=== PATIENT | female | born 1945 | race Caucasian/White ===

== ENCOUNTER 2016-07-31 13:14 | Emergency (ER) | payer OTHER ==
[~2016-07-31] VITALS: Ht 165.1 cm; Wt 47.0 kg
[2016-07-31] VITALS (8 sets, daily range): BP systolic 98–138; BP diastolic 55–72; PULSE 78–109; RESP 14–24; TEMP 97.9; O2SAT 68–88
[~2016-07-31 13:14] MED LIST: ARIC5TAB PO; CIPR500T4 PO; D-10TAB3 PO; DUONI NEB; LEVO.025 PO; LOPE2TAB3 PO; SYMB160A INH; TIOT18I INH
--- NOTE | 2016-07-31 14:34 | PD ---
HPI Chief Complaint: Psychiatric Symptoms Time Seen by Provider: 13:56 Travel History International Travel<30 days: No Contact w/Intl Traveler<30days: No Traveled to known affect area: No History of Present Illness HPI The patient was seen and examined in the presence of the nurse. This is a detention patient with a long history of severe dementia with agitation and behavioral disturbance. She's been here multiple times for that problem. According to detention documentation, this patient refused her medications and oxygen at the detention and wanted to smoke, so the psychiatrist wanted her sent here. Patient is very confused. This is her baseline. She doesn't have any specific medical complaint. She cannot provide any history or review of systems. PFSH Past Medical History Arthritis: Yes Asthma: Yes Blood Disorders: No Anxiety: Yes Depression: Yes Heart Rhythm Problems: No Cancer: Yes (hx lung cancer, according to ED record.) Cardiovascular Problems: Yes High Cholesterol: No Chemotherapy: No Chest Pain: No Congestive Heart Failure: Yes (PER PT) COPD: Yes Cerebrovascular Accident: No Diminished Hearing: No Endocrine: No Gastrointestinal Disorders: Yes GERD: Yes Glaucoma: No Genitourinary: No Headaches: No Hepatitis: No Hiatal Hernia: No Hypertension: No Immune Disorder: No Kidney Stones: No Musculoskeletal: Yes Neurologic: No Psychiatric: Yes Reproductive: No Respiratory: Yes (uses 6lpm nc) Migraines: No Myocardial Infarction: No Radiation Therapy: No Renal Failure: No Seizures: No Sleep Apnea: No Ulcer: Yes Menopausal: Yes Past Surgical History Abdominal Surgery: No AICD: No Appendectomy: No Arteriovenous Shunt: No Cardiac Surgery: No Section: Yes Cholecystectomy: No Ear Surgery: No Endocrine Surgery: No Eye Surgery: No Genitourinary Surgery: No Gynecologic Surgery: No Insulin Pump: No Joint Replacement: No Oral Surgery: No Pacemaker: No Thoracic Surgery: No Other Surgery: Yes Social History Alcohol Use: Yes (RARELY) Tobacco Use: Yes (1/2 PPD) Substance Use: Yes Allergies-Medications (Allergen,Severity, Reaction): Coded Allergies: Aspirin (Verified Allergy, Severe, GI UPSET, 07/31/16) Nonsteroidal Anti-Inflammatory Agts (Verified Allergy, Severe, GI UPSET, ) Penicillin (Verified Allergy, Severe, Anaphylaxis, 07/31/16) Reported Meds & Prescriptions Reported Meds & Active Scripts Active Reported Zofran (Ondansetron HCl) 4 Mg Tab 4 Mg PO Q6HR PRN [place] (Hydrocodone-Acetaminophen) 5-325 mg Tab 1 Tab PO Q4H PRN Duoneb (Ipratropium-Albuterol Neb) 0.5-2.5 Mg/3 Ml Neb 1 Vial NEB QID PRN Benadryl Allergy (Diphenhydramine HCl) 25 Mg Tab 25 Mg PO TID PRN Tylenol (Acetaminophen) 325 Mg Tab 650 Mg PO Q4H PRN [Abh Gel] [id number] 1 Ml TOPICAL Q6HR Seroquel (Quetiapine Fumarate) 25 Mg Tab 25 Mg PO TID Start date: 08/01/2016 @ 0900 Pantoprazole (Pantoprazole Sodium) 40 Mg Tab 40 Mg PO BID Metronidazole 500 Mg Tab 500 Mg PO Q12HR Until 08/02/2016 Advair Hfa 12 GM Inh (Fluticasone-Salmeterol 12 GM Inh) 230-21 Mcg/Act Aer 2 Puff INH BID Clarithromycin 500 Mg Tab 500 Mg PO BID Until 08/02/2016 Levothyroxine (Levothyroxine Sodium) 25 Mcg Tab 25 Mcg PO DAILY Vitamin D3 (Cholecalciferol) 1,000 Unit Tab 1,000 Units PO DAILY Review of Systems General / Constitutional: No: Fever Eyes: No: Visual changes HENT: No: Headaches Cardiovascular: No: Chest Pain or Discomfort Respiratory: No: Shortness of Breath Gastrointestinal: No: Abdominal Pain Genitourinary: No: Dysuria Musculoskeletal: No: Pain Skin: No Rash Neurologic: No: Weakness Psychiatric: Positive: Disorder of Thought, Mood Disorder, No: Depression Endocrine: No: Polydipsia Hematologic/Lymphatic: No: Easy Bruising Physical Exam Narrative GENERAL: Thin elderly confused well-developed patient in no apparent distress. SKIN: Warm and dry. HEAD: Atraumatic. Normocephalic. EYES: Pupils equal and round. No scleral icterus. No injection or drainage. ENT: No nasal bleeding or discharge. Mucous membranes pink and moist. NECK: Trachea midline. No JVD. CARDIOVASCULAR: Regular rate and rhythm. No murmur appreciated. RESPIRATORY: No accessory muscle use. Clear to auscultation. Breath sounds equal bilaterally. GASTROINTESTINAL: Abdomen soft, non-tender, nondistended. Hepatic and splenic margins not palpable. MUSCULOSKELETAL: No obvious deformities. No clubbing. No cyanosis. No edema. NEUROLOGICAL: Awake and alert. No obvious cranial nerve deficits. Motor grossly within normal limits. Normal speech. PSYCHIATRIC: Slightly agitated mood and affect; insight and judgment extremely poor . Data Data Last Documented VS Vital Signs Date Time Temp Pulse Resp B/P Pulse Ox O2 Delivery O2 Flow Rate FiO2 07/31/16 16:00 102 20 99/68 88 Venturi Mask 28 07/31/16 13:27 97.9 Orders Complete Blood Count With Diff (07/31/16 14:18) Basic Metabolic Panel (Bmp) (07/31/16 14:18) Thyroid Stimulating Hormone (07/31/16 14:18) Urinalysis - C+S If Indicated (07/31/16 14:18) Iv Access Insert/Monitor (07/31/16 14:18) Cath For Specimen (07/31/16 14:18) Psych Screen (07/31/16 14:18) Resp Lab Draw Arterial Punctur (07/31/16 ) Labs Laboratory Tests Test 07/31/16 07/31/16 15:06 15:34 Urine Color YELLOW Urine Turbidity CLEAR Urine pH 5.5 Urine Specific [place] 1.023 Urine Protein TRACE mg/dL Urine Glucose (UA) TRACE mg/dL Urine Ketones TRACE mg/dL Urine Occult Blood NEG Urine Nitrite NEG Urine Bilirubin NEG Urine Urobilinogen LESS THAN 2.0 MG/DL Urine Leukocyte Esterase NEG Urine RBC 1 /hpf Urine WBC 1 /hpf Urine Squamous Epithelial 1 /hpf Cells Urine Mucus FEW /lpf Microscopic Urinalysis Comment CULT NOT INDICATED White Blood Count 10.0 TH/MM3 Red Blood Count 3.47 MIL/MM3 Hemoglobin 10.1 GM/DL Hematocrit 30.6 % Mean Corpuscular Volume 88.1 FL Mean Corpuscular Hemoglobin 29.2 PG Mean Corpuscular Hemoglobin 33.1 % Concent Red Cell Distribution Width 15.5 % Platelet Count 519 TH/MM3 Mean Platelet Volume 7.1 FL Neutrophils (%) (Auto) 72.2 % Lymphocytes (%) (Auto) 16.4 % Monocytes (%) (Auto) 7.5 % Eosinophils (%) (Auto) 2.8 % Basophils (%) (Auto) 1.1 % Neutrophils # (Auto) 7.2 TH/MM3 Lymphocytes # (Auto) 1.6 TH/MM3 Monocytes # (Auto) 0.8 TH/MM3 Eosinophils # (Auto) 0.3 TH/MM3 Basophils # (Auto) 0.1 TH/MM3 CBC Comment DIFF FINAL Differential Comment Sodium Level 138 MEQ/L Potassium Level 3.5 MEQ/L Chloride Level 100 MEQ/L Carbon Dioxide Level 26.8 MEQ/L Anion Gap 11 MEQ/L Blood Urea Nitrogen 22 MG/DL Creatinine 0.77 MG/DL Estimat Glomerular Filtration 74 ML/MIN Rate Random Glucose 106 MG/DL Calcium Level 8.7 MG/DL Thyroid Stimulating Hormone 1.910 uIU/ML 3rd Gen [facility] Medical Decision Making Medical Screen Exam Complete: Yes Emergency Medical Condition: Yes Medical Record Reviewed: Yes Differential Diagnosis Baseline psychosis demented behavior, exacerbation of dementia, UTI, electrolyte abnormality Narrative Course I have reviewed the patient's electronic medical record. Frequent visitor for dementia with psychosis IV placed CBC is normal Metabolic profile is normal Urinalysis is clean TSH is normal Seems odd they would send her here for what by all accounts seems to be common behavior for her. I've ordered a psychiatric screening and based on the psychiatrist sending her for argumentative unruly behavior. I doubt psychiatric screening will be much use here however. She is not particular cooperative This seems to be her baseline. She is is medically stable as can be made. When she wears her oxygen mask as directed her saturations are fine. If Psychiatry has no further recommendations she will be sent back to the detention. Diagnosis Primary Impression: Dementia Qualified Code: G30.8 - Alzheimer's dementia with behavioral disturbance, unspecified timing of dementia onset Additional Impression: COPD (chronic obstructive pulmonary disease) Qualified Code: J44.9 - Chronic obstructive pulmonary disease, unspecified COPD type Boby Duong MD Jul 31, 2016 14:34
[2016-07-31] MEDS ORDERED: VITA100018 PO (15:30)
[2016-07-31] MEDS ORDERED: LEVO25TA4 PO (15:30)
[2016-07-31] MEDS ORDERED: CLAR500T PO (15:30)
[2016-07-31] MEDS ORDERED: METR500T10 PO (15:31)
[2016-07-31] MEDS ORDERED: PANT40TA3 PO (15:31)
[2016-07-31] MEDS ORDERED: SERO25TA PO (15:31)
[2016-07-31] MEDS ORDERED: ABH GEL TOPICAL (15:31)
[2016-07-31] MEDS ORDERED: ADVA230A INH (15:31)
[2016-07-31] MEDS ORDERED: BENA25TA3 PO (15:40)
[2016-07-31] MEDS ORDERED: IPRASOL NEB (15:40)
[2016-07-31] MEDS ORDERED: ZOFR4TAB PO (15:40)
[2016-07-31] MEDS ORDERED: TYLE325T PO (15:40)
[2016-07-31] MEDS ORDERED: NORC5TAB PO (15:40)
[2016-07-31 16:17] LABS: AUTOMATED NEUTROPHIL # 7.2 TH/MM3 (1.8-7.7); BASOPHIL # 0.1 TH/MM3 (0-0.2); BASOPHIL % 1.1 % (0.0-2.0); EOSINOPHIL # 0.3 TH/MM3 (0-0.4); EOSINOPHIL % 2.8 % (0.0-4.0); HEMATOCRIT 30.6 % (35.0-46.0); HEMO FLAGS DIFF FINAL; LYMPH % 16.4 % (9.0-44.0); LYMPHOCYTE # 1.6 TH/MM3 (1.0-4.8); MEAN CELL VOLUME 88.1 FL (80.0-100.0); MEAN CORPUSCULAR HEMOGLOBIN 29.2 PG (27.0-34.0); MEAN CORPUSCULAR HGB CONC 33.1 % (32.0-36.0); MONO % 7.5 % (0.0-8.0); NEUT % 72.2 % (16.0-70.0); PLATELET COUNT 519 TH/MM3 (150-450); RED BLOOD COUNT 3.47 MIL/MM3 (4.00-5.30); RED CELL DISTRIBUTION WIDTH 15.5 % (11.6-17.2)
[2016-07-31 16:22] LABS: BLOOD, URINE NEG (NEG); COMMENT (UR) CULT NOT INDICATED; CULTURE IF INDICATED CULT NOT INDICATED; GLUCOSE,URINE TRACE mg/dL (NEG); KETONE, URINE TRACE mg/dL (NEG); MUCUS URINE FEW /lpf (OCC); NITRITE,URINE NEG (NEG); PH, URINE 5.5 (5.0-8.5); SQUAMOUS EPITHELIAL CELL URINE 1 /hpf (0-5); URINE COLOR YELLOW (YELLW/STRAW)
[2016-07-31 16:38] LABS: BICARBONATE 26.8 MEQ/L (21.0-32.0); POTASSIUM 3.5 MEQ/L (3.5-5.1)
[2016-08-01 02:00] VITALS: BP 94/60; PULSE 105; RESP 20; O2SAT 85
[2016-08-01 03:44] VITALS: BP 92/50; PULSE 112; RESP 24; TEMP 98.5; O2SAT 86
[2016-08-01 08:00] VITALS: BP 99/64; PULSE 108; RESP 22; O2SAT 86
[2016-08-01 10:08] VITALS: BP 100/68; TEMP 98
== END 2016-08-01 10:17 ==
LOC: NEPC 13:14
DX: G30.9 Alzheimer's disease, unspecified (principal); F02.81 Dementia in other diseases classified elsewhere, unspecified severity, with behavioral disturbance; J44.9 Chronic obstructive pulmonary disease, unspecified; J45.909 Unspecified asthma, uncomplicated
CPT/HCPCS: 36600; 80048; 81001; 84443; 85025; 99284; P9612

== ENCOUNTER 2016-08-30 22:10 | Emergency (ER) | payer OTHER ==
[~2016-08-30] VITALS: Ht 165.1 cm; Wt 45.0 kg
[~2016-08-30 22:10] MED LIST changes: +ABH GEL TOPICAL; +ADVA230A INH; -ARIC5TAB PO; +BENA25TA3 PO; -CIPR500T4 PO; +CLAR500T PO; -D-10TAB3 PO; -DUONI NEB; +IPRASOL NEB; -LEVO.025 PO; +LEVO25TA4 PO; -LOPE2TAB3 PO; +METR500T10 PO; +NORC5TAB PO; +PANT40TA3 PO; +SERO25TA PO; -SYMB160A INH; -TIOT18I INH; +TYLE325T PO; +VITA100018 PO; +ZOFR4TAB PO
[2016-08-30 22:38] VITALS: BP 125/61; PULSE 108; RESP 18; TEMP 97.7
--- NOTE | 2016-08-30 22:42 | PD ---
HPI Chief Complaint: psychiatric evaluation Time Seen by Provider: 22:36 Travel History International Travel<30 days: No Contact w/Intl Traveler<30days: No History of Present Illness HPI Patient comes in from a retirement under [place] act by police for reportedly being agitated, refusing medications, and disruptive toward staff. Patient states she is unsure why she is here. Patient denies any medical complaints at this time. Denies any chest pain, shortness of breath, headache, nausea, vomiting, or fevers. PFSH Past Medical History Arthritis: Yes Asthma: Yes Blood Disorders: No Anxiety: Yes Depression: Yes Heart Rhythm Problems: No Cancer: Yes (hx lung cancer, according to ED record.) Cardiovascular Problems: Yes High Cholesterol: No Chemotherapy: No Chest Pain: No Congestive Heart Failure: Yes (PER PT) COPD: Yes Cerebrovascular Accident: No Dementia: Yes Diminished Hearing: No Endocrine: No Gastrointestinal Disorders: Yes GERD: Yes Glaucoma: No Genitourinary: Yes (ACUTE RENAL FAILURE) Headaches: No Hepatitis: No Hiatal Hernia: No Hypertension: No Immune Disorder: No Kidney Stones: No Musculoskeletal: Yes Neurologic: No Psychiatric: Yes Reproductive: No Respiratory: Yes (RESP FAILURE) Migraines: No Myocardial Infarction: No Pancreatitis: Yes Radiation Therapy: No Renal Failure: No Seizures: No Sleep Apnea: No Thyroid Disease: Yes Ulcer: Yes Menopausal: Yes Past Surgical History Abdominal Surgery: Yes AICD: No Appendectomy: No Arteriovenous Shunt: No Cardiac Surgery: No Section: Yes Cholecystectomy: No Ear Surgery: No Endocrine Surgery: No Eye Surgery: No Genitourinary Surgery: No Gynecologic Surgery: No Insulin Pump: No Joint Replacement: No Oral Surgery: No Pacemaker: No Thoracic Surgery: No Other Surgery: Yes (PERFORATED DUODENAL ULCER SURGERY 06/2016) Social History Alcohol Use: Yes (RARELY) Tobacco Use: Yes (1/2 PPD) Substance Use: Yes Allergies-Medications (Allergen,Severity, Reaction): Coded Allergies: Aspirin (Verified Allergy, Severe, GI UPSET, 07/31/16) Nonsteroidal Anti-Inflammatory Agts (Verified Allergy, Severe, GI UPSET, ) Penicillin (Verified Allergy, Severe, Anaphylaxis, 07/31/16) Reported Meds & Prescriptions Reported Meds & Active Scripts Active Reported Zofran (Ondansetron HCl) 4 Mg Tab 4 Mg PO Q6HR PRN [place] (Hydrocodone-Acetaminophen) 5-325 mg Tab 1 Tab PO Q4H PRN Duoneb (Ipratropium-Albuterol Neb) 0.5-2.5 Mg/3 Ml Neb 1 Vial NEB QID PRN Benadryl Allergy (Diphenhydramine HCl) 25 Mg Tab 25 Mg PO TID PRN Tylenol (Acetaminophen) 325 Mg Tab 650 Mg PO Q4H PRN [Abh Gel] [id number] 1 Ml TOPICAL Q6HR Pantoprazole (Pantoprazole Sodium) 40 Mg Tab 40 Mg PO BID Advair Hfa 12 GM Inh (Fluticasone-Salmeterol 12 GM Inh) 230-21 Mcg/Act Aer 2 Puff INH BID Levothyroxine (Levothyroxine Sodium) 25 Mcg Tab 25 Mcg PO DAILY Vitamin D3 (Cholecalciferol) 1,000 Unit Tab 1,000 Units PO DAILY Review of Systems Except as stated in HPI: all other systems reviewed are Neg Physical Exam Narrative GENERAL: Well-developed, under nourished, in no acute distress, and non-ill appearing. SKIN: Warm and dry. Febrile erythematous noted bilateral lower extremities patient reports is chronic. Right great toenail is partially removed with patient also reports is chronic. Patient has a necrotic-appearing wound noted on left wrist radial aspect volar surface she reports is been like that since having allergic reaction apparently from her last hospitalization 2-3 weeks ago. HEAD: Atraumatic. Normocephalic. EYES: Pupils equal and round. EOMI. No scleral icterus. No injection or drainage. ENT: No nasal bleeding or discharge. Mucous membranes pink and moist. NECK: Trachea midline. Supple. No nuclear rigidity. CARDIOVASCULAR: Regular rate and rhythm. No murmur appreciated. RESPIRATORY: No accessory muscle use. No respiratory distress. Clear to auscultation. Breath sounds equal bilaterally. MUSCULOSKELETAL: No obvious deformities. No clubbing. No cyanosis. 2+ edema bilateral lower extremities. NEUROLOGICAL: Awake and alert. No obvious cranial nerve deficits. Motor grossly within normal limits. Normal speech. PSYCHIATRIC: Appropriate mood and affect; insight and judgment normal. Data Data Last Documented VS Vital Signs Date Time Temp Pulse Resp B/P Pulse Ox O2 Delivery O2 Flow Rate FiO2 08/31/16 08:43 103 18 127/79 93 Nasal Cannula 4 08/31/16 02:21 30 08/30/16 22:38 97.7 Orders Complete Blood Count With Diff (08/30/16 22:29) Comprehensive Metabolic Panel (08/30/16 22:29) Urinalysis - C+S If Indicated (08/30/16 22:29) Drug Screen, Random Urine (08/30/16 22:29) Alcohol (Ethanol) (08/30/16 22:29) Thyroid Stimulating Hormone (08/30/16 22:29) Acetamin-Hydrocod 325-5 Mg ([place] 5-325 (08/31/16 03:00) Labs Laboratory Tests Test 08/30/16 08/31/16 23:00 01:15 White Blood Count 10.7 TH/MM3 Red Blood Count 3.93 MIL/MM3 Hemoglobin 11.3 GM/DL Hematocrit 33.9 % Mean Corpuscular Volume 86.2 FL Mean Corpuscular Hemoglobin 28.7 PG Mean Corpuscular Hemoglobin 33.3 % Concent Red Cell Distribution Width 16.9 % Platelet Count 447 TH/MM3 Mean Platelet Volume 7.0 FL Neutrophils (%) (Auto) 69.9 % Lymphocytes (%) (Auto) 18.8 % Monocytes (%) (Auto) 7.4 % Eosinophils (%) (Auto) 2.5 % Basophils (%) (Auto) 1.4 % Neutrophils # (Auto) 7.5 TH/MM3 Lymphocytes # (Auto) 2.0 TH/MM3 Monocytes # (Auto) 0.8 TH/MM3 Eosinophils # (Auto) 0.3 TH/MM3 Basophils # (Auto) 0.1 TH/MM3 CBC Comment DIFF FINAL Differential Comment Sodium Level 135 MEQ/L Potassium Level 4.7 MEQ/L Chloride Level 95 MEQ/L Carbon Dioxide Level 36.8 MEQ/L Anion Gap 3 MEQ/L Blood Urea Nitrogen 10 MG/DL Creatinine 0.65 MG/DL Estimat Glomerular Filtration 90 ML/MIN Rate Random Glucose 98 MG/DL Calcium Level 9.4 MG/DL Total Bilirubin 0.3 MG/DL Aspartate Amino Transf 16 U/L (AST/SGOT) Alanine Aminotransferase 16 U/L (ALT/SGPT) Alkaline Phosphatase 160 U/L Total Protein 6.9 GM/DL Albumin 2.9 GM/DL Thyroid Stimulating Hormone 5.120 uIU/ML 3rd Gen Ethyl Alcohol Level LESS THAN 3 MG/DL Urine Color LIGHT-YELLOW Urine Turbidity CLEAR Urine pH 6.0 Urine Specific [place] 1.006 Urine Protein NEG mg/dL Urine Glucose (UA) NEG mg/dL Urine Ketones NEG mg/dL Urine Occult Blood NEG Urine Nitrite NEG Urine Bilirubin NEG Urine Urobilinogen LESS THAN 2.0 MG/DL Urine Leukocyte Esterase NEG Urine WBC 1 /hpf Urine Squamous Epithelial <1 /hpf Cells Urine Hyaline Casts 1 /lpf Urine Mucus FEW /lpf Microscopic Urinalysis Comment CULT NOT INDICATED Urine Opiates Screen POS Urine Barbiturates Screen NEG Urine Amphetamines Screen NEG Urine Benzodiazepines Screen NEG Urine Cocaine Screen NEG Urine Cannabinoids Screen NEG MDM Medical Decision Making Medical Screen Exam Complete: Yes Emergency Medical Condition: Yes Differential Diagnosis Dementia, agitation, psychosis, UTI, cellulitis, chronic pain, COPD, other Narrative Course I contacted the [facility], where patient was transferred from [facility] with the RN Patt, who reports patient's leg are chronic secondary from her sitting in a wheelchair all day and refusing to get into bed. Reports the wound on her left wrist has been there for at least 2 weeks since returning from previous hospital visit she is being treated for acute respiratory failure and pneumonia. Reports patient is no longer on any antibiotics. Patient seen and examined. Initial laboratory studies were ordered. Patient was signed out to Dr. Ortega. Please see his documentation for final diagnosis and disposition. Shakeel Llanos Aug 30, 2016 22:42
[2016-08-30 23:22] LABS: AUTOMATED NEUTROPHIL # 7.5 TH/MM3 (1.8-7.7); BASOPHIL # 0.1 TH/MM3 (0-0.2); BASOPHIL % 1.4 % (0.0-2.0); EOSINOPHIL # 0.3 TH/MM3 (0-0.4); EOSINOPHIL % 2.5 % (0.0-4.0); HEMATOCRIT 33.9 % (35.0-46.0); HEMO FLAGS DIFF FINAL; LYMPH % 18.8 % (9.0-44.0); MEAN CELL VOLUME 86.2 FL (80.0-100.0); MEAN CORPUSCULAR HEMOGLOBIN 28.7 PG (27.0-34.0); MEAN CORPUSCULAR HGB CONC 33.3 % (32.0-36.0); MONO % 7.4 % (0.0-8.0); NEUT % 69.9 % (16.0-70.0); PLATELET COUNT 447 TH/MM3 (150-450); RED BLOOD COUNT 3.93 MIL/MM3 (4.00-5.30); RED CELL DISTRIBUTION WIDTH 16.9 % (11.6-17.2); WHITE BLOOD COUNT 10.7 TH/MM3 (4.0-11.0)
[2016-08-30 23:30] VITALS: BP 105/58; PULSE 101; RESP 18; O2SAT 91
[2016-08-30 23:44] LABS: ALT (GPT) 16 U/L (10-53); ANION GAP 3 MEQ/L (5-15); AST (GOT) 16 U/L (15-37); BICARBONATE 36.8 MEQ/L (21.0-32.0); BLOOD UREA NITROGEN 10 MG/DL (7-18); CHLORIDE 95 MEQ/L (98-107); GLOMERULAR FILTRATION RATE 90 ML/MIN (>89); POTASSIUM 4.7 MEQ/L (3.5-5.1); SODIUM (NA) 135 MEQ/L (136-145)
[2016-08-30 23:53] LABS: ALKALINE PHOSPHATASE 160 U/L (45-117); TOTAL BILIRUBIN ADULT 0.3 MG/DL (0.2-1.0)
[2016-08-31] VITALS: BP 107/59; PULSE 102; RESP 18; O2SAT 89
[2016-08-31 00:37] VITALS: BP 92/55; PULSE 103; RESP 18; O2SAT 90
[2016-08-31 00:55] VITALS: O2SAT 94
[2016-08-31 01:23] VITALS: BP 113/57; PULSE 102; RESP 18; O2SAT 94
[2016-08-31 01:35] LABS: BLOOD, URINE NEG (NEG); COMMENT (UR) CULT NOT INDICATED; CULTURE IF INDICATED CULT NOT INDICATED; GLUCOSE,URINE NEG (NEG); HYALINE CAST, URINE 1 /lpf (RARE); KETONE, URINE NEG (NEG); MUCUS URINE FEW /lpf (OCC); NITRITE,URINE NEG (NEG); SQUAMOUS EPITHELIAL CELL URINE <1 /hpf (0-5); URINE COLOR LIGHT-YELLOW (YELLW/STRAW)
[2016-08-31 01:40] LABS: AMPHETAMINE, URINE NEG (NEG); BARBITURATES, URINE NEG (NEG); COCAINE, URINE NEG (NEG)
--- NOTE | 2016-08-31 02:00 | PD ---
Data Data Last Documented VS Vital Signs Date Time Temp Pulse Resp B/P Pulse Ox O2 Delivery O2 Flow Rate FiO2 08/31/16 01:23 102 18 113/57 94 Venturi Mask 6 30 08/30/16 22:38 97.7 Orders Complete Blood Count With Diff (08/30/16 22:29) Comprehensive Metabolic Panel (08/30/16 22:29) Urinalysis - C+S If Indicated (08/30/16 22:29) Drug Screen, Random Urine (08/30/16 22:29) Alcohol (Ethanol) (08/30/16 22:29) Psych Screen (08/30/16 22:29) Thyroid Stimulating Hormone (08/30/16 22:29) Labs Laboratory Tests Test 08/30/16 08/31/16 23:00 01:15 White Blood Count 10.7 TH/MM3 Red Blood Count 3.93 MIL/MM3 Hemoglobin 11.3 GM/DL Hematocrit 33.9 % Mean Corpuscular Volume 86.2 FL Mean Corpuscular Hemoglobin 28.7 PG Mean Corpuscular Hemoglobin 33.3 % Concent Red Cell Distribution Width 16.9 % Platelet Count 447 TH/MM3 Mean Platelet Volume 7.0 FL Neutrophils (%) (Auto) 69.9 % Lymphocytes (%) (Auto) 18.8 % Monocytes (%) (Auto) 7.4 % Eosinophils (%) (Auto) 2.5 % Basophils (%) (Auto) 1.4 % Neutrophils # (Auto) 7.5 TH/MM3 Lymphocytes # (Auto) 2.0 TH/MM3 Monocytes # (Auto) 0.8 TH/MM3 Eosinophils # (Auto) 0.3 TH/MM3 Basophils # (Auto) 0.1 TH/MM3 CBC Comment DIFF FINAL Differential Comment Sodium Level 135 MEQ/L Potassium Level 4.7 MEQ/L Chloride Level 95 MEQ/L Carbon Dioxide Level 36.8 MEQ/L Anion Gap 3 MEQ/L Blood Urea Nitrogen 10 MG/DL Creatinine 0.65 MG/DL Estimat Glomerular Filtration 90 ML/MIN Rate Random Glucose 98 MG/DL Calcium Level 9.4 MG/DL Total Bilirubin 0.3 MG/DL Aspartate Amino Transf 16 U/L (AST/SGOT) Alanine Aminotransferase 16 U/L (ALT/SGPT) Alkaline Phosphatase 160 U/L Total Protein 6.9 GM/DL Albumin 2.9 GM/DL Thyroid Stimulating Hormone 5.120 uIU/ML 3rd Gen Ethyl Alcohol Level LESS THAN 3 MG/DL Urine Color LIGHT-YELLOW Urine Turbidity CLEAR Urine pH 6.0 Urine Specific [place] 1.006 Urine Protein NEG mg/dL Urine Glucose (UA) NEG mg/dL Urine Ketones NEG mg/dL Urine Occult Blood NEG Urine Nitrite NEG Urine Bilirubin NEG Urine Urobilinogen LESS THAN 2.0 MG/DL Urine Leukocyte Esterase NEG Urine WBC 1 /hpf Urine Squamous Epithelial <1 /hpf Cells Urine Hyaline Casts 1 /lpf Urine Mucus FEW /lpf Microscopic Urinalysis Comment CULT NOT INDICATED Urine Opiates Screen POS Urine Barbiturates Screen NEG Urine Amphetamines Screen NEG Urine Benzodiazepines Screen NEG Urine Cocaine Screen NEG Urine Cannabinoids Screen NEG MDM Medical Record Reviewed: Yes Supervised Visit with BENITO: Yes Differential Diagnosis The history of present illness, ROS, physical exam, review of records and medical workup performed for today's visit have reasonably safely excluded organic etiologies for the patient's presenting complaint. We will continue to monitor the patient carefully in the ER until time of evaluation by the psychiatry service. We are available for any additional medical assistance if needed during the patient's ER course. Disposition per discretion of psychiatry is appreciated. Narrative Course I, Dr. Ortega, have reviewed the advance practice practitioner's documentation and am in agreement unless otherwise indicated below, met with the patient face to face, made the diagnosis, and the medical decision making was done by me. *My assessment and Findings: CBC & BMP Diagram 08/30/16 23:00 TSH 5.12 LFTs essentially normal Tox + for opioids EtOH < 3 UA normal Patient has been seen and evaluated here. The wound along her left DRUJ radial aspect is chronic in nature and does not require inpatient medical management. There is erythema about her bilateral lower extremities which the patient states is chronic times years secondary to remote history of frostbite. Pt has completed a mini mental exam and demonstrates capacity for independent decision making. Her weight is 45 kg. Today's workup reveals no medical emergency. [place] Act paperwork states the patient is assaulting staff and refusing to take her medications. Apparent medication noncompliance has caused no medical emergency based on today's evaluation. Her medication reconciliation reveals no psychotropic agent such that noncompliance is unlikely to have resulted in behavioral change. There is no metabolic or infectious cause for reported behavioral change. As the licensed physician of record, the patient in my professional opinion, has no medical emergency and the claims made in the BA paperwork do not reasonably sufficiently justify involuntary admission to the [facility] nor do they mandate an evaluation by our BA receiving facility psychiatrist. In the event that the personnel at the sending facility feel unequipped to manage the patient due to behavior, consideration may be given a pharmaceutical or medical intervention, or a proper day time meeting including the patient, attending physician, family and facility case management can be organized and a plan from there can be arranged to transfer the patient to another facility. Diagnosis Primary Impression: Agitation Additional Impression: Noncompliance with medication regimen Additional Instruction: You have a choice when it comes to health care, and we are glad that you chose [facility]. Hopefully, we have met your expectations on today's visit. You are welcome to return to [facility] at any time, as we are committed to meeting the health care needs of our community. Med/Other Pt SpecificInfo: No Change to Meds Disposition: 01 DISCHARGE HOME Condition: Stable Eric Ortega MD Aug 31, 2016 02:00
[2016-08-31 02:21] VITALS: BP 101/57
[2016-08-31] MEDS ORDERED: ACETAMINOPHEN/HYDROcodone 325 MG/5 MG TAB PO ONE (03:00)
[2016-08-31 08:43] VITALS: BP 127/79; PULSE 103; RESP 18; O2SAT 93
== END 2016-08-31 14:06 | disposition home or self-care (01) ==
LOC: NEPC 22:10 → NEPA 08-31 14:06
DX: R45.1 Restlessness and agitation (principal); S61.502A Unspecified open wound of left wrist, initial encounter; S91.201A Unspecified open wound of right great toe with damage to nail, initial encounter; Z91.14 Patient's other noncompliance with medication regimen; X58.XXXA Exposure to other specified factors, initial encounter; Y93.9 Activity, unspecified; Y92.9 Unspecified place or not applicable; Y99.9 Unspecified external cause status
CPT/HCPCS: 80053; 80307; 80320; 81001; 84443; 85025